=== PATIENT | female | born 1960 | race Asian ===

== ENCOUNTER 2021-04-13 11:33 | Emergency (ER) | payer OTHER ==
[~2021-04-13] VITALS: Ht 152.4 cm; Wt 63.6 kg
[2021-04-13] MEDS ORDERED: FLUT1AER7 IH (12:07)
[2021-04-13] MEDS ORDERED: SERT-162 PO (12:07)
[2021-04-13] MEDS ORDERED: ALBU8HFA IH (12:07)
[2021-04-13] MEDS ORDERED: LEVO88TA4 PO (12:07)
[2021-04-13] MEDS ORDERED: CHOL200016 PO (12:07)
[2021-04-13] MEDS ORDERED: AMLO-519 PO (12:07)
[2021-04-13] MEDS ORDERED: ALBUTEROL SULFATE HFA 90 MCG/PUFF 8 GM INHALER IH ONE (12:15)
[2021-04-13] MEDS ORDERED: PredniSONE 20 MG TABLET PO ONE (12:15)
[2021-04-13 13:42] VITALS: BP 130/44
== END 2021-04-13 14:10 | disposition home or self-care (01) ==
LOC: EMS 11:37
DX: J45.901 Unspecified asthma with (acute) exacerbation (principal); I10 Essential (primary) hypertension; E05.90 Thyrotoxicosis, unspecified without thyrotoxic crisis or storm; F17.210 Nicotine dependence, cigarettes, uncomplicated; Z79.899 Other long term (current) drug therapy
CPT/HCPCS: 94640; 99283; J7512; J3535